=== PATIENT | female | born 1955 | race Caucasian/White ===

== ENCOUNTER → 2017-04-16 | Outpatient (CLI) | payer OTHER ==
[~2017-04-16] MED LIST: CALC500T93 PO; FLUT16SP NAS; GLUC1500 PO; HYDR25TA6 PO; LISI-167 PO; MULT-90 PO; OXYC-302 PO; OXYC1TAB7 PO; SIMV40TA3 PO; [UNRECOGNIZED DRUG - CODE] PO
== END ==
LOC: CFH 10:19
PROVIDERS: ATTEND Nurse Practitioner
DX: Z12.31 Encounter for screening mammogram for malignant neoplasm of breast (principal)
CPT/HCPCS: 77067

== ENCOUNTER 2018-08-24 16:39 | Emergency (ER) | payer OTHER ==
[~2018-08-24] VITALS: Ht 165.1 cm; Wt 99.6 kg
[~2018-08-24 16:39] MED LIST changes: +CETI10TA3 PO; -GLUC1500 PO; +GLUC15006 PO; -[UNRECOGNIZED DRUG - CODE] PO
--- NOTE | 2018-08-24 16:54 | NUR ---
PATIENT 90% RA IN TRIAGE, SUPPLEMENTAL O2 PUT ON PATIENT, NOW 96% 2L NC, PATIENT SENT TO LOBBY. NO ROOM AVAILABLE AT THIS TIME. NAD NOTED. [id number]. SPOUSE WITH PATIENT.
[2018-08-24] MEDS ORDERED: ALBUTEROL/IPRATROPIUM 2.5MG/0.5MG, 3 ML NPPB ONE (17:00)
[2018-08-24 17:11] LABS: BASOPHILS # (AUTO) 0.09 x10^3/uL (0-0.1); BASOPHILS % (AUTO) 1 % (0-1); EOSINOPHILS # (AUTO) 0.05 x10^3/uL (0-0.4); EOSINOPHILS % (AUTO) 1 % (1-7); LYMPHOCYTES # (AUTO) 0.84 x10^3/uL (1-3.4); LYMPHOCYTES % (AUTO) 10 % (22-44); MD NO; MEAN CORPUSCULAR HEMOGLOBIN 34.6 pg (27.0-34.8); MEAN CORPUSCULAR HGB CONC 33.5 g/dL (32.4-35.8); MEAN CORPUSCULAR VOLUME 103.5 fL (80-100); MEAN PLATELET VOLUME 8.3 fL (7.4-10.4); MONOCYTES # (AUTO) 0.78 x10^3/uL (0.2-0.8); MONOCYTES % (AUTO) 10 % (2-9); NEUTROPHILS # (AUTO) 6.35 x10^3/uL (1.8-6.8); NEUTROPHILS % (AUTO) 78 % (42-75); PLATELET COUNT 121 x10^3/uL (130-400); RED BLOOD COUNT 3.71 x10^6/uL (3.82-5.3); RED CELL DISTRIBUTION WIDTH 15.7 % (9.6-15.2)
[2018-08-24 17:20] LABS: ALBUMIN 4.1 g/dL (3.4-5.0); ANION GAP 8 mmol/L (5-15); CALCIUM 10.2 mg/dL (8.5-10.1); CHLORIDE 99 mmol/L (98-107); CREATININE 1.04 mg/dL (0.55-1.02)
--- NOTE | 2018-08-24 17:37 | NUR ---
FROM LOBBY TO ROOM AT THIS TIME
--- NOTE | 2018-08-24 17:38 | NUR ---
CONTACT WITH PT, 63 YR OLD FEMALE HERE WITH C/O "I'M HAVING A HARD TIME BREATHING, BOTH ANKLES ARE SWOLLEN, FATIGUE (3 WEEKS), SLEEPING A LOT" DIFFICULTY BREATHING HAS BEEN FOR A WEEK OR SO. SHE WAS "DX WITH [facility] ABOUT A MONTH AGO. SHE TOOK ABX, IT DOESNT SEEM LIKE THE ABX CLEARED EVERYTHING UP"
[2018-08-24] MEDS ORDERED: ATOR20TA37 PO (17:55)
[2018-08-24] MEDS ORDERED: IRBE1TAB37 PO (17:55)
[2018-08-24] MEDS ORDERED: ALBUTEROL/IPRATROPIUM 2.5MG/0.5MG, 3 ML ONE (18:02)
[2018-08-24 19:20] VITALS: BP 149/88
== END 2018-08-24 19:21 | disposition home or self-care (01) ==
LOC: ED 18:56
DX: R60.0 Localized edema (principal); R06.00 Dyspnea, unspecified; I10 Essential (primary) hypertension; E78.5 Hyperlipidemia, unspecified
CPT/HCPCS: 36415; 71046; 80048; 82040; 85025; 85379; 93005; 99284